=== PATIENT | female | born 1975 | race Hispanic/Latino ===

== ENCOUNTER 2022-08-19 17:32 | Emergency (ER) | payer OTHER ==
[~2022-08-19] VITALS: Ht 165.1 cm; Wt 109.8 kg
[2022-08-19] MEDS ORDERED: CLEOCIN HCL300 MG PO (17:55)
[2022-08-19] MEDS ORDERED: KETOROLAC TROME10 MG PO (17:59)
[2022-08-19] MEDS ORDERED: ACETAMINOPHEN 325 MG TAB ONE (18:02)
[2022-08-19] MEDS ORDERED: TRAMADOL HCL 50 MG TAB ONE (18:05)
[2022-08-19] MEDS ORDERED: TRAMADOL HCL 50 MG TAB PO ONE (18:15)
== END 2022-08-19 18:16 | disposition home or self-care (01) ==
LOC: FSED 17:36
DX: L03.011 Cellulitis of right finger (principal); E11.9 Type 2 diabetes mellitus without complications; J45.909 Unspecified asthma, uncomplicated
CPT/HCPCS: 99282